=== PATIENT | female | born 1955 | race Caucasian/White ===

== ENCOUNTER 2016-11-07 10:31 | Emergency (ER) | payer OTHER ==
[~2016-11-07] VITALS: Ht 154.9 cm; Wt 77.1 kg
--- NOTE | 2016-11-07 11:28 | EKG ---
[facility] [address] [place] [address] Test Date: 2016-11-07 Test Time: 10:57:49 Pat Name: EITAN LOBO Department: Room: Gender: F Appeals Reviewer Veteran: : 1955 Requested By: Del LIEBERMAN Order Number: [id number] Reading MD: Laura Pina Measurements Intervals [place] Rate: 74 P: 59 MA: 134 QRS: 2 QRSD: 72 T: 38 QT: 374 QTc: 420 Interpretive Statements SINUS RHYTHM LEFT ATRIAL ABNORMALITY OTHERWISE NORMAL ECG RI6.01 No previous ECG available for comparison Electronically Signed On 11-11-2016 19:47:33 D[employer] APPRENTICE by Laura Pina
[2016-11-07] MEDS ORDERED: LIDO:MAALOX:DONNATAL 1:1:1 15 ML SINGLE DOSE SWSW ONE (11:30)
--- NOTE | 2016-11-07 11:51 | RAD ---
Chest, 2 views, 11/07/2016: History: Chest pain The heart size and pulmonary vascularity are normal. No pulmonary consolidation is seen. There is no evidence of pleural fluid. IMPRESSION: No acute cardiopulmonary abnormality is detected.
[2016-11-07] MEDS ORDERED: OMEP40CA5 PO (12:10)
[2016-11-07] MEDS ORDERED: LEVO112T4 PO (12:11)
[2016-11-07 12:12] LABS: BILIRUBIN,URINE NEGATIVE (NEG); GLUCOSE,URINE NEGATIVE (NEG); NITRITE,URINE NEGATIVE (NEG); PROTEIN,URINE NEGATIVE (NEG-TRACE); UROBILINOGEN,URINE 0.2 mg/dL (0.2 mg/dL)
[2016-11-07] MEDS ORDERED: ALEN70TA5 PO (12:12)
[2016-11-07] MEDS ORDERED: BUSP10TA PO (12:12)
[2016-11-07] MEDS ORDERED: LIFE (12:15)
[2016-11-07] MEDS ORDERED: D-3 (12:15)
[2016-11-07] MEDS ORDERED: SUPER B (12:15)
--- NOTE | 2016-11-07 12:15 | PHYS DOC ---
Past Medical History Past Medical History: Anxiety, Depression, GERD, High Cholesterol, Hypertension Past Surgical History: , Other Additional Past Surgical Histo: CYST REMOVED FROM NECK Alcohol Use: Rarely Drug Use: None Adult General Chief Complaint Chief Complaint: CHEST PAIN HPI HPI Patient is a 61 year old female who presents with left lower chest pain and left upper quadrant abdominal pain that radiates to back for the past week that is constant, dull, achy. Started at rest. Denies dyspnea, f/c, n/v, diaphoresis , lightheadedness, exertional symptoms, orthopnea, leg pain or swelling, hemoptysis, dark or bloody stools. Review of Systems Review of Systems Constitutional: Denies fever or chills [] Eyes: Denies change in visual acuity, redness, or eye pain [] HENT: Denies nasal congestion or sore throat [] Respiratory: Denies cough or shortness of breath [] Cardiovascular: No additional information not addressed in HPI [] GI: Denies nausea, vomiting, bloody stools or diarrhea [] : Denies dysuria or hematuria [] Musculoskeletal: Denies joint pain [] Integument: Denies rash or skin lesions [] Neurologic: Denies headache, focal weakness or sensory changes [] Endocrine: Denies polyuria or polydipsia [] Current Medications Current Medications Current Medications Medications (Trade) Dose Ordered Sig/Alexia Start Time Stop Time Status Last Admin Dose Admin Multi-Ingredient Mouthwash/Gargle (Gi Cocktail Single Dose) 15 ml 1X ONCE 11/07/16 11:30 11/07/16 11:31 DC 11/07/16 12:54 15 ML Allergies Allergies Allergies Coded Allergies Type Severity Reaction Last Updated Verified bupropion Allergy Intermediate "RASH" 11/07/16 No Physical Exam Physical Exam Constitutional: Well developed, well nourished, no acute distress, non-toxic appearance. [] HENT: Normocephalic, atraumatic, bilateral external ears normal, oropharynx moist, nose normal. [] Eyes: PERRLA, EOMI. [] Neck: Normal range of motion, supple. [] Cardiovascular:Heart rate regular rhythm [] Lungs & Thorax: Bilateral breath sounds clear to auscultation. No chest wall tenderness. No visual or palpable abnormality [] Abdomen: Bowel sounds normal, soft, no tenderness. [] Skin: Warm, dry, no erythema, no rash. [] Back: No tenderness, no CVA tenderness. [] Extremities: No tenderness, ROM intact, no edema, no palpable cord. [] Neurologic: Alert and oriented X 3, normal motor function, normal sensory function, no focal deficits noted. [] Psychologic: Affect normal, judgement normal, mood normal. [] Current Patient Data Vital Signs Vital Signs Date Time Temp Pulse Resp B/P Pulse Ox O2 Delivery O2 Flow Rate FiO2 11/07/16 12:45 70 18 104/58 97 Room Air 11/07/16 11:00 98.2 98.2 Lab Values Laboratory Tests Test 11/07/16 11:42 11/07/16 11:45 Urine Collection Type Unknown Urine Color Yellow Urine Clarity Clear Urine pH 6.0 Urine Specific [place] <=1.005 Urine Protein Negativemg/dL (NEG-TRACE) Urine Glucose (UA) Negativemg/dL (NEG) Urine Ketones (Stick) Negativemg/dL (NEG) Urine Blood Negative (NEG) Urine Nitrite Negative (NEG) Urine Bilirubin Negative (NEG) Urine Urobilinogen Dipstick 0.2mg/dL (0.2 mg/dL) Urine Leukocyte Esterase Small (NEG) Urine RBC 0/HPF (0-2) Urine WBC 20-40/HPF (0-4) Urine Squamous Epithelial Cells Mod/LPF Urine Bacteria Few/HPF (0-FEW) White Blood Count 10.6x10^3/uL (4.0-11.0) Red Blood Count 5.40x10^6/uL (3.50-5.40) Hemoglobin 14.3g/dL (12.0-15.5) Hematocrit 43.1% (36.0-47.0) Mean Corpuscular Volume 80fL (79-100) Mean Corpuscular Hemoglobin 27pg (25-35) Mean Corpuscular Hemoglobin Concent 33g/dL (31-37) Red Cell Distribution Width 14.3% (11.5-14.5) Platelet Count 288x10^3/uL (140-400) Neutrophils (%) (Auto) 77% (31-73) H Lymphocytes (%) (Auto) 15% (24-48) L Monocytes (%) (Auto) 7% (0-9) Eosinophils (%) (Auto) 1% (0-3) Basophils (%) (Auto) 1% (0-3) Neutrophils # (Auto) 8.1x10^3uL (1.8-7.7) H Lymphocytes # (Auto) 1.6x10^3/uL (1.0-4.8) Monocytes # (Auto) 0.7x10^3/uL (0.0-1.1) Eosinophils # (Auto) 0.1x10^3/uL (0.0-0.7) Basophils # (Auto) 0.0x10^3/uL (0.0-0.2) Sodium Level 140mmol/L (136-145) Potassium Level 4.2mmol/L (3.5-5.1) Chloride Level 104mmol/L (98-107) Carbon Dioxide Level 27mmol/L (21-32) Anion Gap 9 (6-14) Blood Urea Nitrogen 16mg/dL (7-20) Creatinine 0.8mg/dL (0.6-1.0) Estimated GFR (Cockcroft-Gault) 72.7 Glucose Level 102mg/dL (70-99) H Calcium Level 9.8mg/dL (8.5-10.1) Total Bilirubin 0.3mg/dL (0.2-1.0) Direct Bilirubin 0.1mg/dL (0.0-0.2) Aspartate Amino Transferase (AST) 27U/L (15-37) Alanine Aminotransferase (ALT) 39U/L (14-59) Alkaline Phosphatase 57U/L (46-116) Troponin I Quantitative < 0.017ng/mL (0.000-0.055) Total Protein 7.4g/dL (6.4-8.2) Albumin 4.0g/dL (3.4-5.0) Lipase 105U/L (73-393) Laboratory Tests 11/07/16 11:45 Laboratory Tests 11/07/16 11:45 EKG EKG EKG as interpreted by me as normal sinus rhythm, rate 74, no ST-T changes, normal intervals, no ectopy Radiology/Procedures Radiology/Procedures Chest xray as interpreted by me with no acute cardiopulmonary disease process Course & Med Decision Making Course & Med Decision Making Pertinent Labs and Imaging studies reviewed. (See chart for details) Workup is unremarkable. Encouraged close follow up. Return precautions given. She understands and agrees with plan. Dragon Disclaimer Dragon Disclaimer This electronic medical record was generated, in whole or in part, using a voice recognition dictation system. Departure Departure Impression: Primary Impression: Left upper quadrant abdominal pain of unknown etiology Disposition: 01 HOME, SELF-CARE Condition: STABLE Referrals: FLORENCE MIR (PCP) Patient Instructions: Abdominal Pain, [id number] Additional Instructions: Follow-up with your primary care doctor. Return for any concerns. Del LIEBERMAN MD Nov 07, 2016 12:15
[2016-11-07 12:16] LABS: CALCIUM 9.8 mg/dL (8.5-10.1); CREATININE 0.8 mg/dL (0.6-1.0); GFR 72.7; POTASSIUM 4.2 mmol/L (3.5-5.1)
[2016-11-07] MEDS ORDERED: [UNRECOGNIZED DRUG - OTHER] (12:16)
[2016-11-07] MEDS ORDERED: lisinopril-HCTZ (12:17)
[2016-11-07] MEDS ORDERED: SIMV (12:19)
[2016-11-07] MEDS ORDERED: ASPI-482 PO (12:19)
[2016-11-07 12:21] LABS: DIRECT BILIRUBIN 0.1 mg/dL (0.0-0.2); TOTAL BILIRUBIN 0.3 mg/dL (0.2-1.0); TOTAL PROTEIN 7.4 g/dL (6.4-8.2)
[2016-11-07 12:30] LABS: BACTERIA,URINE FEW /HPF (0-FEW); RBC,URINE 0 /HPF (0-2); SQUAMOUS EPITHELIAL CELL,UR MOD /LPF; WBC,URINE 20-40 /HPF (0-4)
[2016-11-07 12:39] LABS: BASO % 1 % (0-3); EOS % 1 % (0-3); HEMATOCRIT 43.1 % (36.0-47.0); HEMOGLOBIN 14.3 g/dL (12.0-15.5); LYMPH # 1.6 x10^3/uL (1.0-4.8); LYMPH % 15 % (24-48); MEAN CORPUSCULAR HEMOGLOBIN 27 pg (25-35); MEAN CORPUSCULAR HGB CONC 33 g/dL (31-37); MEAN CORPUSCULAR VOLUME 80 fL (79-100); MONO % 7 % (0-9); NEUT % 77 % (31-73); PLATELET COUNT 288 x10^3/uL (140-400); RED CELL DISTRIBUTION WIDTH 14.3 % (11.5-14.5); WHITE BLOOD COUNT 10.6 x10^3/uL (4.0-11.0)
[2016-11-07 12:45] VITALS: BP 104/58
== END 2016-11-07 13:16 | disposition home or self-care (01) ==
LOC: ER 10:31
DX: R10.12 Left upper quadrant pain (principal); E78.00 Pure hypercholesterolemia, unspecified; K21.9 Gastro-esophageal reflux disease without esophagitis; I10 Essential (primary) hypertension; Z88.8 Allergy status to other drugs, medicaments and biological substances
CPT/HCPCS: 36415; 71020; 80048; 80076; 81001; 83690; 84484; 85027; 87086; 93005; 99285-25